=== PATIENT | male | born 1945 ===

== ENCOUNTER 2018-11-06 07:56 | Outpatient (CLI) | payer MEDICARE | END 2018-11-06 07:57 | disposition home or self-care (01) | LOC: C.USIC 07:56 | DX: R10.13 Epigastric pain (principal) ==

== ENCOUNTER 2018-11-08 08:18 | Outpatient (CLI) | payer MEDICARE | END 2018-11-08 08:19 | disposition home or self-care (01) | LOC: C.CTH 08:18 | DX: R10.13 Epigastric pain (principal); R19.06 Epigastric swelling, mass or lump; R16.0 Hepatomegaly, not elsewhere classified ==

== ENCOUNTER 2018-11-25 12:42 | Outpatient (CLI) | payer MEDICARE | END 2018-11-25 12:43 | disposition home or self-care (01) | LOC: C.USIC 12:42 | DX: N50.819 Testicular pain, unspecified (principal) ==